=== PATIENT | female | born 1975 | race Caucasian/White ===

== ENCOUNTER 2021-09-25 01:34 | Observation (INO) | payer OTHER ==
[2021-09-25 01:54] VITALS: BMI 32.8
[2021-09-25] MEDS ORDERED: methylPREDNISolone NA SUCC 125 MG/2 ML VIAL IVPB ONE (02:33)
[2021-09-25] MEDS ORDERED: ALBUTEROL SO4 2.5/IPRATROPIUM 0.5 INH SOL 3 ML VIAL.NEB. NEB ONE ×2 (02:33→02:50)
[2021-09-25] MEDS ORDERED: ACETAMINOPHEN 1000 MG/100 ML BAG IVPB ONE (02:38)
[2021-09-25] MEDS ORDERED: ACETAMINOPHEN INJECTION 100 ML IVPB ONE (02:51)
[2021-09-25] MEDS ORDERED: methylPREDNISolone NA SUCC 125 MG/2 ML VIAL ONE (02:51)
[2021-09-25 03:31] LABS: BASO % 0.5 % (0-2.0); EOS % 2.7 % (0-4.5); HEMATOCRIT 36.4 % (32.4-45.2); LYMPH % 24.2 % (8-40); MEAN PLT VOLUME 7.7 fl (7.5-11.1); MONO % 5.9 % (3.8-10.2); NEUT % 66.7 % (42.8-82.8); PLATELET COUNT 292 10^3/uL (134-434); RBC 4.44 M/mm3 (3.60-5.2); RDW 16.7 % (11.6-15.6); WHITE BLOOD COUNT 6.4 K/mm3 (4.0-10.0)
[2021-09-25 03:45] LABS: INR 0.96 (0.83-1.09)
[2021-09-25 03:47] LABS: ACTIVATED PTT 30.1 SECONDS (25.2-36.5)
[2021-09-25 03:48] LABS: CALCIUM 8.9 mg/dL (8.5-10.1)
[2021-09-25 03:49] LABS: ALBUMIN 3.6 g/dl (3.4-5.0); BLOOD UREA NITROGEN 11.8 mg/dL (7-18)
[2021-09-25 03:53] LABS: TOT PROT 7.1 g/dl (6.4-8.2)
[2021-09-25 03:54] LABS: BILIRUBIN,TOTAL 0.3 mg/dL (0.2-1)
[2021-09-25 04:23] LABS: CREATININE 0.5 mg/dL (0.55-1.3)
[2021-09-25] MEDS ORDERED: ALBUTEROL SO4 HFA INHALER IH PRN (09:33)
[2021-09-25] MEDS ORDERED: ALBUTEROL SO4 2.5/IPRATROPIUM 0.5 INH SOL 3 ML VIAL.NEB. NEB SCH (09:45)
[2021-09-25] MEDS: AZITHROMYCIN 500 MG TABLET PO SCH (13:30)
[2021-09-25] MEDS: CEFTRIAXONE 1 GM in DEXTROSE 5%-WATER - 50 ML IVPB SCH (13:30)
[2021-09-25] MEDS ORDERED: AZITHROMYCIN 250 MG TABLET ONE (13:49)
[2021-09-25] MEDS ORDERED: CEFTRIAXONE 1 GM/50 ML BAG ONE (13:49)
[2021-09-25] MEDS ORDERED: ALBUTEROL SO4 0.083% IH SOL 2.5 MG/3 ML VIAL.NEB. NEB PRN (13:55)
[2021-09-25] MEDS: BUDESONIDE/FORMETEROL FUMARATE 160/4.5 mcg INHALER IH SCH (23:08)
[2021-09-25] MEDS: MONTELUKAST NA 10 MG TABLET PO SCH (23:08)
[2021-09-25] MEDS: ROSUVASTATIN CA 10 MG TABLET PO SCH (23:08)
[2021-09-26 09:41] LABS: BASO % 0.2 % (0-2.0); EOS % 0.1 % (0-4.5); HEMATOCRIT 35.1 % (32.4-45.2); HEMOGLOBIN 11.6 GM/dL (10.7-15.3); LYMPH % 17.5 % (8-40); MCH 27.2 pg (25.7-33.7); MEAN CELL VOLUME 82.6 fl (80-96); MEAN PLT VOLUME 7.8 fl (7.5-11.1); MONO % 5.5 % (3.8-10.2); NEUT % 76.7 % (42.8-82.8); PLATELET COUNT 297 10^3/uL (134-434); RBC 4.25 M/mm3 (3.60-5.2); RDW 16.6 % (11.6-15.6); WHITE BLOOD COUNT 12.9 K/mm3 (4.0-10.0)
[2021-09-26 09:53] LABS: ALBUMIN 3.4 g/dl (3.4-5.0); BLOOD UREA NITROGEN 16.2 mg/dL (7-18); CALCIUM 9.3 mg/dL (8.5-10.1)
[2021-09-26 09:56] LABS: CREATININE 0.6 mg/dL (0.55-1.3)
[2021-09-26 09:58] LABS: BILIRUBIN,TOTAL 0.5 mg/dL (0.2-1); TOT PROT 6.9 g/dl (6.4-8.2)
[2021-09-26] MEDS ORDERED: cefTRIAXone SODIUM 1 GM VIAL ONE (10:01)
[2021-09-26] MEDS ORDERED: DEXTROSE 5%-WATER - 50 ML IVPB ONE (10:02)
[2021-09-26] MEDS: CEFTRIAXONE 1 GM in DEXTROSE 5%-WATER - 50 ML IVPB SCH (10:05)
[2021-09-26] MEDS: AZITHROMYCIN 500 MG TABLET PO SCH (10:05)
[2021-09-26] MEDS: methylPREDNISolone NA SUCC 40 MG/1 ML VIAL IVPUSH SCH ×2 (10:05→21:30)
[2021-09-26] MEDS: ENOXAPARIN NA (PORCINE) 40 MG/0.4 ML DISP.SYRIN SQ SCH (10:05)
[2021-09-26] MEDS: FOLIC ACID 1 MG TABLET (FP) PO SCH (10:05)
[2021-09-26] MEDS: BUDESONIDE/FORMETEROL FUMARATE 160/4.5 mcg INHALER IH SCH ×2 (10:06→21:31)
[2021-09-26] MEDS: ROSUVASTATIN CA 10 MG TABLET PO SCH (21:30)
[2021-09-26] MEDS: MONTELUKAST NA 10 MG TABLET PO SCH (21:30)
[2021-09-27] MEDS ORDERED: cefTRIAXone SODIUM 1 GM VIAL ONE (10:17)
[2021-09-27] MEDS ORDERED: DEXTROSE 5%-WATER - 50 ML IVPB ONE (10:17)
[2021-09-27] MEDS: ENOXAPARIN NA (PORCINE) 40 MG/0.4 ML DISP.SYRIN SQ SCH (10:22)
[2021-09-27] MEDS: AZITHROMYCIN 500 MG TABLET PO SCH (10:23)
[2021-09-27] MEDS: BUDESONIDE/FORMETEROL FUMARATE 160/4.5 mcg INHALER IH SCH ×2 (10:23→22:47)
[2021-09-27] MEDS: methylPREDNISolone NA SUCC 40 MG/1 ML VIAL IVPUSH SCH ×2 (10:23→22:46)
[2021-09-27] MEDS: CEFTRIAXONE 1 GM in DEXTROSE 5%-WATER - 50 ML IVPB SCH (10:23)
[2021-09-27] MEDS: FOLIC ACID 1 MG TABLET (FP) PO SCH (10:23)
[2021-09-27] MEDS: MONTELUKAST NA 10 MG TABLET PO SCH (22:46)
[2021-09-27] MEDS: ROSUVASTATIN CA 10 MG TABLET PO SCH (22:46)
[2021-09-28 10:20] LABS: BASO % 0.4 % (0-2.0); HEMATOCRIT 34.8 % (32.4-45.2); HEMOGLOBIN 11.4 GM/dL (10.7-15.3); LYMPH % 14.5 % (8-40); MCH 26.8 pg (25.7-33.7); MCHC 32.8 g/dl (32.0-36.0); MEAN CELL VOLUME 81.7 fl (80-96); MONO % 3.5 % (3.8-10.2); NEUT % 81.6 % (42.8-82.8); PLATELET COUNT 303 10^3/uL (134-434); RBC 4.26 M/mm3 (3.60-5.2); RDW 17.2 % (11.6-15.6)
[2021-09-28 10:45] LABS: BLOOD UREA NITROGEN 17.8 mg/dL (7-18); CALCIUM 9.1 mg/dL (8.5-10.1)
[2021-09-28 10:49] LABS: CREATININE 0.6 mg/dL (0.55-1.3)
[2021-09-28] MEDS: BUDESONIDE/FORMETEROL FUMARATE 160/4.5 mcg INHALER IH SCH ×2 (11:15→22:19)
[2021-09-28] MEDS ORDERED: cefTRIAXone SODIUM 1 GM VIAL ONE (11:19)
[2021-09-28] MEDS ORDERED: DEXTROSE 5%-WATER - 50 ML IVPB ONE (11:20)
[2021-09-28] MEDS: CEFTRIAXONE 1 GM in DEXTROSE 5%-WATER - 50 ML IVPB SCH (11:52)
[2021-09-28] MEDS: FOLIC ACID 1 MG TABLET (FP) PO SCH (11:52)
[2021-09-28] MEDS: ENOXAPARIN NA (PORCINE) 40 MG/0.4 ML DISP.SYRIN SQ SCH (11:52)
[2021-09-28] MEDS: methylPREDNISolone NA SUCC 40 MG/1 ML VIAL IVPUSH SCH ×2 (11:53→22:19)
[2021-09-28] MEDS: ROSUVASTATIN CA 10 MG TABLET PO SCH (22:19)
[2021-09-28] MEDS: MONTELUKAST NA 10 MG TABLET PO SCH (22:19)
[2021-09-29] MEDS: ENOXAPARIN NA (PORCINE) 40 MG/0.4 ML DISP.SYRIN SQ SCH (12:05)
[2021-09-29] MEDS: BUDESONIDE/FORMETEROL FUMARATE 160/4.5 mcg INHALER IH SCH (12:05)
[2021-09-29] MEDS: FOLIC ACID 1 MG TABLET (FP) PO SCH (12:05)
[2021-09-29] MEDS: methylPREDNISolone NA SUCC 40 MG/1 ML VIAL IVPUSH SCH (12:05)
[2021-09-29] MEDS: CEFTRIAXONE 1 GM in DEXTROSE 5%-WATER - 50 ML IVPB SCH (12:05)
[2021-09-29 13:10] VITALS: BP 132/77; PULSE 76; TEMP 98.2
== END 2021-09-29 15:19 | disposition home or self-care (01) ==
LOC: JER 01:34 → JERBED 06:07 → J8W 22:19
PROVIDERS: ADMIT Internal Medicine; ATTEND Internal Medicine
PROC: 3E033NZ Introduction of Analgesics, Hypnotics, Sedatives into Peripheral Vein, Percutaneous Approach (ICD-10-PCS; principal; 2021-09-25)
PROC: 3E0F7GC Introduction of Other Therapeutic Substance into Respiratory Tract, Via Natural or Artificial Opening (ICD-10-PCS; 2021-09-25)
PROC: 3E033GC Introduction of Other Therapeutic Substance into Peripheral Vein, Percutaneous Approach (ICD-10-PCS; 2021-09-25)
DX: J84.10 Pulmonary fibrosis, unspecified (principal); J47.9 Bronchiectasis, uncomplicated; J45.901 Unspecified asthma with (acute) exacerbation; M06.9 Rheumatoid arthritis, unspecified; J45.909 Unspecified asthma, uncomplicated; R04.2 Hemoptysis; E66.8 Other obesity; Z68.32 Body mass index [BMI] 32.0-32.9, adult
CPT/HCPCS: 36415; 71275-TC; 80048; 80053; 84484; 84703; 85025; 85610; 85730; 86480; 87070; 87116; 87205; 87206; 87804; 93005; 93010; 94640; 96374; 96375; 96376; 99285-25; C9803-CS; G0378; Q9967; U0003; U0005